=== PATIENT | female | born 1950 | race Caucasian/White ===

== ENCOUNTER 2020-10-07 11:06 | Emergency (ER) | payer OTHER ==
[~2020-10-07] VITALS: Ht 160 cm; Wt 76.7 kg
[~2020-10-07 11:06] MED LIST: ASA81 MG PO; BENTYL10 MG/ML IM; CARDURA1 MG; INTEGRA PLUS C1 EACH PO; LOTREL 10-20 MG1 CAP PO; OXYC1TAB9 PO; XARELTO10 MG PO
== END 2020-10-07 18:02 | disposition home or self-care (01) ==
LOC: ER 11:06
DX: K57.32 Diverticulitis of large intestine without perforation or abscess without bleeding (principal); Z03.818 Encounter for observation for suspected exposure to other biological agents ruled out

== ENCOUNTER 2023-06-27 06:08 | Emergency (ER) | payer OTHER ==
[~2023-06-27] VITALS: Ht 160 cm; Wt 78.5 kg
[2023-06-27] MEDS ORDERED: TOPROL XL25 M1 PO (06:19)
== END 2023-06-27 08:46 | disposition home or self-care (01) ==
LOC: ER 06:08
DX: H60.90 Unspecified otitis externa, unspecified ear (principal)